=== PATIENT | female | born 1995 | race Caucasian/White ===

== ENCOUNTER 2017-03-18 15:47 | Emergency (ER) | payer OTHER ==
[2017-03-18 15:53] VITALS: BP 130/85; BMI 18.6
--- NOTE | 2017-03-18 16:22 | DR.GENAD ---
HPI - PCP Primary Care Physician: MELLISA - HPI Comment HPI Comment: LOWER ABDOMINAL PAIN WITH NAUSEA TIME 3 DAYS THAT IS WORSE TODAY. NO FEVER. NO DYSURIA. NO VOMITING. DIARRHEA STOOL THAT HAVE IMPROVE.DENIES VAGINAL DISCHARGE. PERIOD IS LATE. - Complaint/Symptoms Chief Complaint Doctors Comments: LOWER ABDOMINAL PAIN TIMES 3 DAYS Chief Complaint:: PATIENT STATED SHE HAS BEEN HAVING LOWER ABD PAIN FOR 3 DAYS. SHE STATED SHE HAS HAD DIARRHEA AND NAUSEA. SHE ALSO STATED SHE MAY OR MAY NOT BE . - Nurses notes reviewed Nurses Notes Review: Yes - Source History Provided: Patient - Mode of Arrival Mode of Arrival: Ambulatory - Timing Onset of Chief Complaint: 03/15/17 Came on: Suddenly - Duration Duration: Constant Duration: Days - Severity Severity: Moderate PMH - PMH Past Medical History: No Past Surgical History: Yes Surgical History: - Family History History of Family Medical Conditions: Yes Family Medical History: Cancer, Heart Failure - Social History Does patient currently use any type of tobacco product: Yes Have you used tobacco products in the last 12 months: Yes Type of Tobacco Use: Cigarettes How many years tobacco product used: 11 Does any household member use tobacco: No Alcohol Use: Rarely Do you use any recreational Drugs:: Yes (THC) Lives With: Family Lives Where: Home - infectious screening In the last 2 months have you had wt loss of >10#?: NO Have you had fever, night sweats or hemotysis?: No Have you traveled outside the country in the last 6 months?: No Isolation: Standard ROS - Review of Systems Constitutional: No Symptoms Reported Eyes: No Symptoms Reported ENTM: No Symptoms Reported Respiratoy: No Symptoms Reported Cardiovascular: No Symptoms Reported Gastrointestinal/Abdominal: Abdominal Pain, Nausea Genitourinary: No Symptoms Reported. negative: Dysuria, Frequency, Hematuria Neurological: No Symptoms Reported Musculoskeletal: No Symptoms Reported Integumentary: No Symptoms Reported Hematologic/Lymphatic: No Symptoms Reported Endocrine: No Symptoms Reported All Other Systems: Reviewed and Negative PE - Vital Signs Vitals: Temperature 98.7 F Pulse Rate 106 Respiratory Rate 16 Blood Pressure 130/85 O2 Sat by Pulse Oximetry 100 - General Limitations: No Limitations General Appearance: Alert - Head Head Exam: Normal Inspection - Eyes Eye exam: Normal Appearance - ENT ENT Exam: Normal External Ear Exam External Ear Exam: Normal External Inspection TM/Canal Exam: Bilateral Normal Nose Exam: Normal Nose Exam Mouth Exam: Normal Inspection Throat Exam: Normal Inspection - Neck Neck Exam: Trachea Midline - Chest Chest Inspection: Symmetric Chest Wall Rise - Respiratory Respiratory Exam: Normal Lung Sounds Bilat Respiratory Exam: Bilateral Clear to Auscultation - Cardiovascular Cardiovascular Exam: Regular Rate, Normal Rhythm, Normal Heart Sounds - Abdominal Exam Abdominal Exam: Normal Bowel Sounds, Soft, Tenderness Abdominal Tenderness: RLQ, LLQ, Suprapubic, Moderate - Extremities Extremities Exam: Normal Inspection - Back Back Exam: Normal Inspection - Neurologic Neurological Exam: Alert, Oriented X3 - Psychiatric Psychiatric Exam: Normal Affect, Normal Mood - Skin Skin Exam: Normal Color MDM - Differential Diagnosis Differential Diagnosis: ABDOMINAL PAIN, UTI, BOWEL OBSTRUCTION, Course - Treatment Treatment: SEE ORDERS - Education/Counseling Education/Counseling: Patient, Education Educated On: Diagnosis, Needs for Follow Up ROR - Labs Reviewed Laboratory Results Reviewed?: Yes Result Diagrams: 03/18/17 16:32 03/18/17 16:32 Laboratory: WBC 6.7 X10^3/uL (3.6-10.0) 03/18/17 16:32 RBC 3.81 X10^6/uL (3.5-5.4) 03/18/17 16:32 Hgb 12.6 g/dL (12.0-16.0) 03/18/17 16:32 Hct 35.9 % (36.0-47.0) L 03/18/17 16:32 MCV 94.2 fL (80.0-100.0) 03/18/17 16:32 MCH 32.9 pg (27.0-34.0) 03/18/17 16:32 MCHC 34.9 g/dL (33.0-35.0) 03/18/17 16:32 RDW 12.6 % (11.6-16.5) 03/18/17 16:32 Plt Count 203 X10^3/uL (150.0-450.0) 03/18/17 16:32 MPV 7.9 fL (7.4-11.0) 03/18/17 16:32 Neut % 59.7 % (42.0-75.0) 03/18/17 16:32 Lymph % 30.0 % (21.0-51.0) 03/18/17 16:32 [place] % 6.8 % (0.0-13.0) 03/18/17 16:32 Eos % 2.5 % (0.9-2.9) 03/18/17 16:32 Baso % 1.0 % (0.2-1.0) 03/18/17 16:32 Neut # 4.0 x10^3/uL (2.2-4.8) 03/18/17 16:32 Lymph # 2.0 X10^3/uL (1.3-2.9) 03/18/17 16:32 [place] # 0.5 x10^3/uL (0.3-0.8) 03/18/17 16:32 Eos # 0.2 x10^3/uL (0.0-0.2) 03/18/17 16:32 Baso # 0.1 X10^3/uL (0.0-0.1) 03/18/17 16:32 Absolute Nucleated RBC 0.0 /100WBC 03/18/17 16:32 Sodium 142 mmol/L (136-145) 03/18/17 16:32 Corrected Sodium TNP 03/18/17 16:32 Potassium 3.9 mmol/L (3.5-5.1) 03/18/17 16:32 Chloride 106 mmol/L (98-107) 03/18/17 16:32 Carbon Dioxide 27.7 mmol/L (21-32) 03/18/17 16:32 BUN 13 mg/dL (7-18) 03/18/17 16:32 Creatinine 0.79 mg/dL (0.55-1.02) 03/18/17 16:32 Est GFR (MDRD) Af Amer > 60 (>60) 03/18/17 16:32 Est GFR (MDRD) Non-Af > 60 (>60) 03/18/17 16:32 Glucose 90 mg/dL (65-99) 03/18/17 16:32 Calcium 9.0 mg/dL (8.5-10.1) 03/18/17 16:32 Corrected Calcium TNP 03/18/17 16:32 Total Bilirubin 0.30 mg/dL (0.2-1.0) 03/18/17 16:32 AST 20 Units/L (15-37) 03/18/17 16:32 ALT 34 Units/L (12-78) 03/18/17 16:32 Alkaline Phosphatase 66 Units/L (46-116) 03/18/17 16:32 Total Protein 7.4 g/dL (6.4-8.2) 03/18/17 16:32 Albumin 4.2 g/dL (3.4-5.0) 03/18/17 16:32 Globulin 3.2 g/dL (2.5-4.5) 03/18/17 16:32 Albumin/Globulin Ratio 1.3 Ratio (1.1-2.1) 03/18/17 16:32 Amylase 96 Units/L (25-115) 03/18/17 16:32 Lipase 201 Units/L (73-393) 03/18/17 16:32 HCG, Qual Negative <10 mIU/mL 03/18/17 16:32 Specimen Type Clean catch urine 03/18/17 16:18 Urine Color Yellow (YELLOW) 03/18/17 16:18 Urine Appearance Clear (CLEAR) 03/18/17 16:18 Urine pH 7.0 (5.0 - 8.0) 03/18/17 16:18 Ur Specific [place] 1.010 (1.000-1.030) 03/18/17 16:18 Urine Protein Negative (NEGATIVE) 03/18/17 16:18 Urine Glucose (UA) Negative (NEGATIVE) 03/18/17 16:18 Urine Ketones Negative (NEGATIVE) 03/18/17 16:18 Urine Occult Blood 2+ (NEGATIVE) 03/18/17 16:18 Urine Nitrite Negative (NEGATIVE) 03/18/17 16:18 Urine Bilirubin Negative (NEGATIVE) 03/18/17 16:18 Urine Urobilinogen Normal (NORMAL) 03/18/17 16:18 Ur Leukocyte Esterase Negative (NEGATIVE) 03/18/17 16:18 Urine RBC 1-3 /HPF (NEGATIVE) 03/18/17 16:18 Urine WBC 0-1 /HPF (NEGATIVE) 03/18/17 16:18 Ur Squamous Epith Cells Many /HPF (NEGATIVE) 03/18/17 16:18 Amorphous Sediment Trace /HPF (NEGATIVE) 03/18/17 16:18 Urine Bacteria 1+ /HPF (NEGATIVE) 03/18/17 16:18 Urine Mucus Few /HPF (NEGATIVE) 03/18/17 16:18 Ur Culture Indicated? No/not indicated 03/18/17 16:18 - XRAY XRAY Interpreted by: Radiologist XRAY Findings: REPORT DISCUSS WITH PATIENT. - Diagnosis Discharge Problem: Abdominal pain Qualifiers: Abdominal location: lower abdomen, unspecified Qualified Code(s): R10.30 - Lower abdominal pain, unspecified - Discharge Plan Condition: Stable - Follow ups/Referrals Follow ups/Referrals: LEMUEL HOPE [Primary Care Provider] - 03/19/17 - Instructions Instructions: Abdominal Pain, Adult, [id number] Additional Instructions: RETURN TO ED IF WORSE.
[2017-03-18 16:36] LABS: BILIRUBIN,URINE NEGATIVE (NEGATIVE); BLOOD/HEMOGLOBIN,URINE 2+ (NEGATIVE); GLUCOSE, URINE NEGATIVE (NEGATIVE); KETONES,URINE NEGATIVE (NEGATIVE); LEUKOCYTE ESTERASE ,URINE NEGATIVE (NEGATIVE); NITRITES,URINE NEGATIVE (NEGATIVE); PROTEIN,URINE NEGATIVE (NEGATIVE); UROBILINOGEN,URINE NORMAL (NORMAL)
[2017-03-18 16:44] LABS: BASOPHILS # (AUTO) 0.1 X10^3/uL (0.0-0.1); EOSINOPHILS # (AUTO) 0.2 x10^3/uL (0.0-0.2); EOSINOPHILS % (AUTO) 2.5 % (0.9-2.9); HEMATOCRIT 35.9 % (36.0-47.0); HEMOGLOBIN 12.6 g/dL (12.0-16.0); MEAN CORPUSCULAR HEMOGLOBIN 32.9 pg (27.0-34.0); MEAN CORPUSCULAR HGB CONC 34.9 g/dL (33.0-35.0); MEAN CORPUSCULAR VOLUME 94.2 fL (80.0-100.0); MEAN PLATELET VOLUME 7.9 fL (7.4-11.0); MONOCYTES # (AUTO) 0.5 x10^3/uL (0.3-0.8); MONOCYTES % (AUTO) 6.8 % (0.0-13.0); NEUTROPHILS % (AUTO) 59.7 % (42.0-75.0); RED BLOOD COUNT 3.81 X10^6/uL (3.5-5.4); RED CELL DISTRIBUTION WIDTH 12.6 % (11.6-16.5); WHITE BLOOD COUNT 6.7 X10^3/uL (3.6-10.0)
[2017-03-18 16:44] LABS: APPEARANCE,URINE CLEAR (CLEAR); COLOR,URINE YELLOW (YELLOW)
[2017-03-18 16:45] LABS: AMORPHOUS SEDIMENT,UR TRACE /HPF (NEGATIVE); BACTERIA,URINE 1+ /HPF (NEGATIVE); MUCUS,URINE FEW /HPF (NEGATIVE); SQUAMOUS EPITHELIAL CELL,UR MANY /HPF (NEGATIVE)
[2017-03-18 16:45] LABS: SERUM PREGNANCY TEST, QUAL NEGATIVE <10 mIU/mL
[2017-03-18 16:48] LABS: PLATELET COUNT 203 X10^3/uL (150.0-450.0)
[2017-03-18 16:51] LABS: ALANINE AMINOTRANSFERASE 34 Units/L (12-78); ALBUMIN 4.2 g/dL (3.4-5.0); ALKALINE PHOSPHATASE 66 Units/L (46-116); AMYLASE 96 Units/L (25-115); ASPARTATE AMINO TRANSFERASE 20 Units/L (15-37); BLOOD UREA NITROGEN 13 mg/dL (7-18); CARBON DIOXIDE 27.7 mmol/L (21-32); CHLORIDE 106 mmol/L (98-107); CREATININE 0.79 mg/dL (0.55-1.02); GLUCOSE 90 mg/dL (65-99); LIPASE 201 Units/L (73-393); SODIUM 142 mmol/L (136-145); TOTAL PROTEIN 7.4 g/dL (6.4-8.2); eGFR BLACK RACES > 60 (>60); eGFR NON BLACK RACES > 60 (>60)
--- NOTE | 2017-03-18 17:46 | RAD ---
HISTORY: Lower abdominal pain for 3 days Study: Acute abdominal series Comparison: None Findings: The trachea is midline. The cardiac silhouette is unremarkable. The lungs are clear without focal infiltrate or effusion. The bony thorax is unremarkable. Flat plate and upright evaluation of the abdomen demonstrates a normal bowel gas pattern. No pathol ogical soft tissue mass or calcification can be observed. The bony structures are grossly intact. IMPRESSION: 1. No acute cardiopulmonary disease. 2. No evidence for acute abdominal pathology identified. Reported By:
== END 2017-03-18 18:00 | disposition home or self-care (01) ==
LOC: ER 16:03
DX: R10.31 Right lower quadrant pain (principal)
CPT/HCPCS: 36415; 74022; 80053; 81001; 82150; 83690; 84703; 85025; 99282; 99283

== ENCOUNTER 2017-12-18 20:59 | Emergency (ER) | payer OTHER ==
[2017-12-18 21:08] VITALS: BP 114/64; BMI 19.0
--- NOTE | 2017-12-18 21:38 | DR.GENAD ---
HPI - PCP Primary Care Physician: N FD - Complaint/Symptoms Chief Complaint Doctors Comments: Patient presents with complaint of vaginal spotting of two days duration. She initially had small amount of blood now more blood and hematuria. She has been taking ibuprofen for the cramping. Her OB is Dr Glass.LMP 10/20/17. Patient reports that she has been passing clots with abdominal pain. Chief Complaint:: CRAMPING/ ABDOMINAL PAIN - Source History Provided: Patient - Mode of Arrival Mode of Arrival: Ambulatory - Timing Onset of Chief Complaint: 12/17/17 PMH - PMH Past Medical History: No Past Surgical History: Yes Surgical History: - Family History History of Family Medical Conditions: Yes Family Medical History: Cancer, Hypertension - Social History Does patient currently use any type of tobacco product: No Have you used tobacco products in the last 12 months: No Type of Tobacco Use: Cigarettes Does any household member use tobacco: No Alcohol Use: None Do you use any recreational Drugs:: Yes (THC) Lives With: Family Lives Where: Home - infectious screening In the last 2 months have you had wt loss of >10#?: NO Have you had fever, night sweats or hemotysis?: No Have you traveled outside the country in the last 6 months?: No Isolation: Standard ROS - Review of Systems Eyes: No Symptoms Reported ENTM: No Symptoms Reported Respiratoy: No Symptoms Reported Cardiovascular: No Symptoms Reported Gastrointestinal/Abdominal: See HPI, Abdominal Pain Genitourinary: No Symptoms Reported Neurological: No Symptoms Reported Musculoskeletal: No Symptoms Reported Integumentary: No Symptoms Reported Hematologic/Lymphatic: No Symptoms Reported Endocrine: No Symptoms Reported Psychiatric: No Symptoms Reported All Other Systems: Reviewed and Negative PE - Vital Signs Vitals: Temperature 98.7 F Pulse Rate 104 Respiratory Rate 16 Blood Pressure 114/64 O2 Sat by Pulse Oximetry 99 - General Limitations: No Limitations General Appearance: Alert, In No Apparent Distress - Head Head Exam: Normal Inspection, Atraumatic - Eyes Eye exam: Normal Appearance, PERRL, EOMI - ENT ENT Exam: Normal Exam External Ear Exam: Normal External Inspection TM/Canal Exam: Bilateral Normal Nose Exam: Normal Nose Exam Mouth Exam: Normal Inspection Throat Exam: Normal Inspection - Neck Neck Exam: Normal Inspection, Full ROM - Chest Chest Inspection: Normal Inspection - Respiratory Respiratory Exam: Normal Lung Sounds Bilat Respiratory Exam: Bilateral Clear to Auscultation - Cardiovascular Cardiovascular Exam: Regular Rate - Abdominal Exam Abdominal Exam: Normal Inspection, Normal Bowel Sounds Abdominal Tenderness: Diffuse - Extremities Extremities Exam: Normal Inspection, Full ROM - Back Back Exam: Normal Inspection, Full ROM - Neurologic Neurological Exam: Alert, Oriented X3, CN II-XII Intact - Psychiatric Psychiatric Exam: Normal Affect, Normal Mood, Depressed - Skin Skin Exam: Warm, Dry, Intact Course - Treatment Treatment: Patient states that has passed a larg clot while awaiting on results ot US. She no longer has abdominal pain. ROR - Labs Reviewed Result Diagrams: 12/18/17 21:25 Laboratory: WBC 9.9 X10^3/uL (3.6-10.0) 12/18/17 21:25 RBC 4.03 X10^6/uL (3.5-5.4) 12/18/17 21: Hgb 13.6 g/dL (12.0-16.0) 12/18/17 21:25 Hct 38.1 % (36.0-47.0) 12/18/17 21:25 MCV 94.6 fL (80.0-100.0) 12/18/17 21:25 MCH 33.6 pg (27.0-34.0) 12/18/17 21:25 MCHC 35.5 g/dL (33.0-35.0) H 12/18/17 21:25 RDW 12.5 % (11.6-16.5) 12/18/17 21:25 Plt Count 275 X10^3/uL (150.0-450.0) 12/18/17 21:25 MPV 8.1 fL (7.4-11.0) 12/18/17 21:25 Neut % 64.0 % (42.0-75.0) 12/18/17 21:25 Lymph % 28.4 % (21.0-51.0) 12/18/17 21:25 [place] % 4.6 % (0.0-13.0) 12/18/17 21:25 Eos % 2.2 % (0.9-2.9) 12/18/17 21:25 Baso % 0.8 % (0.2-1.0) 12/18/17 21:25 Neut # 6.4 x10^3/uL (2.2-4.8) H 12/18/17 21:25 Lymph # 2.8 X10^3/uL (1.3-2.9) 12/18/17 21:25 [place] # 0.5 x10^3/uL (0.3-0.8) 12/18/17 21:25 Eos # 0.2 x10^3/uL (0.0-0.2) 12/18/17 21:25 Baso # 0.1 X10^3/uL (0.0-0.1) 12/18/17 21:25 Absolute Nucleated RBC 0.0 /100WBC 12/18/17 21:25 HCG, Qual Positive >10 mIU/mL 12/18/17 21: HCG, Quant [id number] mIU/mL (0-6) H 12/18/17 21:25 Specimen Type Clean catch urine 12/18/17 21:34 Urine Color Bloody (YELLOW) 12/18/17 21:34 Urine Appearance Hazy (CLEAR) 12/18/17 21:34 Urine pH 6.0 (5.0 - 8.0) 12/18/17 21:34 Ur Specific [place] 1.020 (1.000-1.030) 12/18/17 21:34 Urine Protein 3+ (NEGATIVE) 12/18/17 21:34 Urine Glucose (UA) Negative (NEGATIVE) 12/18/17 21:34 Urine Ketones Negative (NEGATIVE) 12/18/17 21:34 Urine Occult Blood 5+ (NEGATIVE) 12/18/17 21:34 Urine Nitrite Negative (NEGATIVE) 12/18/17 21:34 Urine Bilirubin Negative (NEGATIVE) 12/18/17 21:34 Urine Urobilinogen 1+ (NORMAL) 12/18/17 21:34 Ur Leukocyte Esterase 3+ (NEGATIVE) 12/18/17 21:34 Urine RBC Tntc /HPF (NONE SEEN) 12/18/17 21:34 Urine WBC 6-10 /HPF (NONE SEEN) 12/18/17 21:34 Ur Squamous Epith Cells Few /HPF (NEGATIVE) 12/18/17 21:34 Urine Bacteria 2+ /HPF (NEGATIVE) 12/18/17 21:34 Ur Culture Indicated? Yes/culture set up 12/18/17 21:34 - XRAY XRAY Interpreted by: Radiologist (OBsteric US: The uterus is 8.8x4.2x6.1 cm. There is a single intrauterine gestational sac with a mean diameter of 2.4cm. There is a single pole with a crown-rump length of 0.84 cm. No cardiac activity was visualized. A 0.66cm yolk sac was observed. The ovaries and adnexa are within normal limits. The right ovary is 2.0x1.5x1.7cm and the left ovary is 2.4x1.2x1.7cm. No significant free fluid. Impression: Findings suggesting early failure, with visualization of a ole with a crown-rump length of 8mm, but no evidence for cardiac activity. Close obsteric and sonographic follow-up with HCG trending is recommended. ) - Diagnosis Discharge Problem: Probable early failure - Discharge Plan Condition: Stable - Follow ups/Referrals Follow ups/Referrals: NFD,None [Primary Care Provider] - 3 days - Instructions
[2017-12-18 21:48] LABS: BASOPHILS # (AUTO) 0.1 X10^3/uL (0.0-0.1); BASOPHILS % (AUTO) 0.8 % (0.2-1.0); EOSINOPHILS # (AUTO) 0.2 x10^3/uL (0.0-0.2); EOSINOPHILS % (AUTO) 2.2 % (0.9-2.9); HEMATOCRIT 38.1 % (36.0-47.0); HEMOGLOBIN 13.6 g/dL (12.0-16.0); LYMPHOCYTES # (AUTO) 2.8 X10^3/uL (1.3-2.9); LYMPHOCYTES % (AUTO) 28.4 % (21.0-51.0); MEAN CORPUSCULAR HEMOGLOBIN 33.6 pg (27.0-34.0); MEAN CORPUSCULAR HGB CONC 35.5 g/dL (33.0-35.0); MEAN CORPUSCULAR VOLUME 94.6 fL (80.0-100.0); MEAN PLATELET VOLUME 8.1 fL (7.4-11.0); MONOCYTES # (AUTO) 0.5 x10^3/uL (0.3-0.8); MONOCYTES % (AUTO) 4.6 % (0.0-13.0); NEUTROPHILS # (AUTO) 6.4 x10^3/uL (2.2-4.8); PLATELET COUNT 275 X10^3/uL (150.0-450.0); RED BLOOD COUNT 4.03 X10^6/uL (3.5-5.4); RED CELL DISTRIBUTION WIDTH 12.5 % (11.6-16.5); SERUM PREGNANCY TEST, QUAL POSITIVE >10 mIU/mL; WHITE BLOOD COUNT 9.9 X10^3/uL (3.6-10.0)
[2017-12-18 21:52] LABS: BILIRUBIN,URINE NEGATIVE (NEGATIVE); BLOOD/HEMOGLOBIN,URINE 5+ (NEGATIVE); GLUCOSE, URINE NEGATIVE (NEGATIVE); KETONES,URINE NEGATIVE (NEGATIVE); LEUKOCYTE ESTERASE ,URINE 3+ (NEGATIVE); NITRITES,URINE NEGATIVE (NEGATIVE); PROTEIN,URINE 3+ (NEGATIVE); UROBILINOGEN,URINE 1+ (NORMAL)
[2017-12-18 21:56] LABS: APPEARANCE,URINE HAZY (CLEAR); BACTERIA,URINE 2+ /HPF (NEGATIVE); COLOR,URINE BLOODY (YELLOW); RBC,URINE TNTC /HPF (NONE SEEN); SQUAMOUS EPITHELIAL CELL,UR FEW /HPF (NEGATIVE)
--- NOTE | 2017-12-19 00:20 | US ---
Obstetric ultrasound Indication: patient with heavy vaginal bleeding. Comparison: None Technique: Sonographic images of the pelvis were obtained with focused evaluation of the fetus. Findings: The uterus is 8.8 x 4.2 x 6.1 cm. There is a single intrauterine gestational sac with a sergio n diameter of 2.4 cm. There is a single pole with a crown-rump length of 0.84 cm. No cardiac ac tivity was visualized. A 0.66 cm yolk sac was observed. The ovaries and adnexa are within normal limi ts. The right ovary is 2.0 x 1.5 x 1.7 cm in the left ovary is 2.4 x 1.2 x 1.7 cm. No significant eloisa e fluid. Impression: Findings suggesting early failure, with visualization of a pole with a cr own-rump length of 8 mm, but no evidence for cardiac activity. Close obstetric and sonographic follow -up with HCG trending is recommended. Reported By:
== END 2017-12-19 01:00 | disposition home or self-care (01) ==
LOC: ER 21:11
DX: O46.90 Antepartum hemorrhage, unspecified, unspecified trimester (principal); Z3A.00 Weeks of gestation of pregnancy not specified
CPT/HCPCS: 36415; 76801; 81001; 84702; 84703; 85025; 87086; 99284